=== PATIENT | male | born 1935 | race Hispanic/Latino ===

== ENCOUNTER 2018-09-11 12:53 | Inpatient (IN) | payer OTHER, MEDICARE ==
[2018-09-11 14:47] VITALS: BMI 26.8
[2018-09-12 06:54] LABS: HEMOGLOBIN 12.3 g/dL (12.0-18.0); MEAN CELL VOLUME 95.9 fl (80.0-94.0); MEAN CORPUSCULAR HEMOGLOBIN 32.6 pg (27.0-31.0); RBC 3.77 Mil/uL (4.40-5.90); RED CELL DISTRIBUTION WIDTH 12.8 % (11.5-14.5)
[2018-09-12] MEDS: Metoprolol Succinate 100 mg XL Tab PO SCH (08:34)
[2018-09-12] MEDS: Multivitamin With Minerals Tab PO SCH (08:34)
[2018-09-12] MEDS: Aspirin 325 mg EC Tablets PO SCH (08:34)
[2018-09-12] MEDS: Enoxaparin 40 mg Syringe SC SCH (18:14)
[2018-09-13] MEDS: Enoxaparin 40 mg Syringe SC SCH (08:31)
[2018-09-13] MEDS: Metoprolol Succinate 100 mg XL Tab PO SCH (08:32)
[2018-09-13] MEDS: Multivitamin With Minerals Tab PO SCH (08:32)
[2018-09-13] MEDS: Aspirin 325 mg EC Tablets PO SCH (08:33)
--- NOTE | 2018-09-14 01:40 | CP.PCM.PN ---
Subjective - Date & Time of Evaluation Date of Evaluation: 09/13/18 Time of Evaluation: 13:50 Objective - Vital Signs/Intake and Output Vital Signs (last 24 hours): Temp Pulse Resp BP Pulse Ox 98.2 F 78 20 130/75 93 L 09/13/18 20:06 09/13/18 20:06 09/13/18 20:06 09/13/18 20:06 09/13/18 20:06 - Medications Medications: Current Medications Acetaminophen (Tylenol 325mg Tab) 650 mg PO Q6 PRN PRN Reason: Fever >100.4 F Acetaminophen (Tylenol 325mg Tab) 650 mg PO Q6 PRN PRN Reason: Pain, Mild (1-3) Aspirin (Ecotrin) 325 mg PO DAILY [facility] Last Admin: 09/13/18 08:33 Dose: 325 mg Atorvastatin Calcium (Lipitor) 40 mg PO HS [facility] Last Admin: 09/13/18 21:22 Dose: 40 mg Enoxaparin Sodium (Lovenox) 40 mg SC DAILY [facility]; Protocol Last Admin: 09/13/18 08:31 Dose: 40 mg Losartan Potassium (Cozaar) 50 mg PO DAILY [facility] Last Admin: 09/13/18 08:33 Dose: 50 mg Metoprolol Succinate (Toprol Xl) 100 mg PO DAILY [facility] Last Admin: 09/13/18 08:32 Dose: 100 mg Multivitamins/Minerals (Therapeutic-M Tab) 1 tab PO DAILY [facility] Last Admin: 09/13/18 08:32 Dose: 1 tab Niacin (Niacin) 500 mg PO DAILY [facility] Last Admin: 09/13/18 08:31 Dose: 500 mg Vitamin E (Vitamin E 400 Units Cap) 400 intlu PO DAILY [facility] Last Admin: 09/13/18 08:32 Dose: 400 intlu - Labs Labs: 09/12/18 06:40
--- NOTE | 2018-09-14 01:40 | CP.PCM.HP ---
History of Present Illness - History of Present Illness History of Present Illness: Chief complaint: Physical deconditioning and generalized weakness History of present illness: 82 years old male was admitted to telemetry unit for severe dehydration due to vomiting & found to have non-ST elevation KS and nonsustained V.Tach. Patient was evaluated by sewing machine mechanic recommended cardiac catheterization but family does not want any invasive procedures. Patient was managed medically. Patient is complaining generalized weakness and unable to walk with a walker [baseline patient walks with a walker] due to physical deconditioning. Physical therapist and occupational therapist patient and recommended transitional care unit for PT/OT. Present on Admission - Present on Admission Any Indicators Present on Admission: No Review of Systems - Review of Systems All systems: reviewed and no additional remarkable complaints except Review of Systems: as per HPI Past Patient History - Past Medical History & Family History Past Medical History?: Yes Past Family History: Reviewed and not pertinent - Past Social History Smoking Status: Never Smoked Alcohol: None Drugs: Denies - CARDIAC Hx Hypertension: Yes - NEUROLOGICAL Hx Neurological Disorder: No - RENAL Hx Kidney Stones: Yes - HEMATOLOGICAL/ONCOLOGICAL Hx AIDS: No Hx Cancer: Yes (skin cancer) Hx Human Immunodeficiency Virus (HIV): No - MUSCULOSKELETAL/RHEUMATOLOGICAL Hx Arthritis: Yes Hx Falls: No - PSYCHIATRIC Hx Substance Use: No - SURGICAL HISTORY Other/Comment: right foot surgery - ANESTHESIA Hx Anesthesia: Yes Hx Anesthesia Reactions: No Meds Allergies/Adverse Reactions: Allergies Allergy/AdvReac Type Severity Reaction Status Date / Time No Known Allergies Allergy Verified 09/11/18 13:16 Physical Exam - Constitutional Appears: Well, No Acute Distress, Chronically Ill - Head Exam Head Exam: ATRAUMATIC, NORMAL INSPECTION, NORMOCEPHALIC - Eye Exam Eye Exam: EOMI, Normal appearance, PERRL Pupil Exam: NORMAL ACCOMODATION, PERRL - ENT Exam ENT Exam: Mucous Membranes Moist, Normal Exam - Neck Exam Neck exam: Positive for: Normal Inspection - Respiratory Exam Respiratory Exam: Clear to Auscultation Bilateral, NORMAL BREATHING PATTERN - Cardiovascular Exam Cardiovascular Exam: REGULAR RHYTHM, +S1, +S2 - GI/Abdominal Exam GI & Abdominal Exam: Normal Bowel Sounds, Soft. absent: Tenderness - Extremities Exam Extremities exam: Positive for: normal capillary refill, normal inspection - Back Exam Back exam: NORMAL INSPECTION - Neurological Exam Neurological exam: Abnormal Gait, Alert, CN II-XII Intact, Motor Sensory Deficit, Reflexes Normal - Psychiatric Exam Psychiatric exam: Normal Affect, Normal Mood - Skin Skin Exam: Dry, Intact, Normal Color, Warm Results - Vital Signs Recent Vital Signs: Last Vital Signs Temp 98.2 F 09/13/18 20:06 Pulse 78 09/13/18 20:06 Resp 20 09/13/18 20:06 BP 130/75 09/13/18 20:06 Pulse Ox 93 L 09/13/18 20:06 - Labs Result Diagrams: 09/12/18 06:40 Assessment & Plan (1) Ventricular tachycardia Status: Resolved Priority: High (2) NSTEMI (non-ST elevated myocardial infarction) Status: Resolved Priority: High (3) Generalized weakness Status: Acute Priority: High (4) Physical deconditioning Status: Acute Priority: High (5) DNI (do not intubate) Status: Chronic (6) Hypertension Status: Chronic Priority: Low (7) Skin cancer of scalp Status: Chronic Priority: Low (8) Dehydration Status: Resolved Priority: High (9) Sepsis Status: Resolved Priority: High - Assessment and Plan (Free Text) Plan: Continue with ASA/Metoprolol/Lipitor/Niacin PT/OT DVT Prophylaxis Engineering Programmer Consult
[2018-09-14] MEDS: Multivitamin With Minerals Tab PO SCH (08:21)
[2018-09-14] MEDS: Metoprolol Succinate 100 mg XL Tab PO SCH (08:21)
[2018-09-14] MEDS: Aspirin 325 mg EC Tablets PO SCH (08:21)
[2018-09-14] MEDS: Enoxaparin 40 mg Syringe SC SCH (08:21)
--- NOTE | 2018-09-14 22:37 | CP.PCM.PN ---
Subjective - Date & Time of Evaluation Date of Evaluation: 09/14/18 Time of Evaluation: 11:25 Objective - Vital Signs/Intake and Output Vital Signs (last 24 hours): Temp Pulse Resp BP Pulse Ox 98.2 F 85 20 140/65 94 L 09/14/18 21:11 09/14/18 21:11 09/14/18 21:11 09/14/18 21:11 09/14/18 21:11 - Medications Medications: Current Medications Acetaminophen (Tylenol 325mg Tab) 650 mg PO Q6 PRN PRN Reason: Fever >100.4 F Acetaminophen (Tylenol 325mg Tab) 650 mg PO Q6 PRN PRN Reason: Pain, Mild (1-3) Aspirin (Ecotrin) 325 mg PO DAILY [facility] Last Admin: 09/14/18 08:21 Dose: 325 mg Atorvastatin Calcium (Lipitor) 40 mg PO HS [facility] Last Admin: 09/13/18 21:22 Dose: 40 mg Enoxaparin Sodium (Lovenox) 40 mg SC DAILY [facility]; Protocol Last Admin: 09/14/18 08:21 Dose: 40 mg Losartan Potassium (Cozaar) 50 mg PO DAILY [facility] Last Admin: 09/14/18 08:22 Dose: 50 mg Metoprolol Succinate (Toprol Xl) 100 mg PO DAILY [facility] Last Admin: 09/14/18 08:21 Dose: 100 mg Multivitamins/Minerals (Therapeutic-M Tab) 1 tab PO DAILY [facility] Last Admin: 09/14/18 08:21 Dose: 1 tab Niacin (Niacin) 500 mg PO DAILY [facility] Last Admin: 09/14/18 08:22 Dose: 500 mg Vitamin E (Vitamin E 400 Units Cap) 400 intlu PO DAILY [facility] Last Admin: 09/14/18 08:21 Dose: 400 intlu - Labs Labs: 09/12/18 06:40
[2018-09-15] MEDS: Enoxaparin 40 mg Syringe SC SCH (08:27)
[2018-09-15] MEDS: Aspirin 325 mg EC Tablets PO SCH (08:27)
[2018-09-15] MEDS: Metoprolol Succinate 100 mg XL Tab PO SCH (08:28)
[2018-09-15] MEDS: Multivitamin With Minerals Tab PO SCH (08:28)
--- NOTE | 2018-09-15 17:02 | CP.PCM.CON ---
History of Present Illness - History of Present Illness History of Present Illness: Dr Martinez PMR consultation on Mykel Hamlin, born 1935 who has been admitted to [facility] for [facility] T[facility]. 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 Review of Systems - Constitutional Constitutional: absent: Chills - EENT Eyes: absent: Change in Vision Nose/Mouth/Throat: absent: Nasal Congestion, Nasal Discharge, Dysphagia - Cardiovascular Cardiovascular: absent: Chest Pain - Respiratory Respiratory: absent: Dyspnea, Hemoptysis - Gastrointestinal Gastrointestinal: absent: Abdominal Pain - Musculoskeletal Musculoskeletal: Stiffness (L>R knee) - Neurological Neurological: absent: Abnormal Movements Past Patient History - Past Medical History & Family History Past Medical History?: Yes - Past Social History Smoking Status: Never Smoked Alcohol: None Drugs: Denies Home Situation {Lives}: Alone (ground floor) - CARDIAC Hx Hypertension: Yes - NEUROLOGICAL Hx Neurological Disorder: No - RENAL Hx Kidney Stones: Yes - HEMATOLOGICAL/ONCOLOGICAL Hx AIDS: No Hx Cancer: Yes (skin cancer) Hx Human Immunodeficiency Virus (HIV): No - MUSCULOSKELETAL/RHEUMATOLOGICAL Hx Arthritis: Yes Hx Falls: No - PSYCHIATRIC Hx Substance Use: No - SURGICAL HISTORY Other/Comment: right foot surgery - ANESTHESIA Hx Anesthesia: Yes Hx Anesthesia Reactions: No Meds Allergies/Adverse Reactions: Allergies Allergy/AdvReac Type Severity Reaction Status Date / Time No Known Allergies Allergy Verified 09/11/18 13:16 - Medications Medications: Current Medications Acetaminophen (Tylenol 325mg Tab) 650 mg PO Q6 PRN PRN Reason: Fever >100.4 F Acetaminophen (Tylenol 325mg Tab) 650 mg PO Q6 PRN PRN Reason: Pain, Mild (1-3) Aspirin (Ecotrin) 325 mg PO DAILY [facility] Last Admin: 09/15/18 08:27 Dose: 325 mg Atorvastatin Calcium (Lipitor) 40 mg PO HS [facility] Last Admin: 09/14/18 22:00 Dose: 40 mg Enoxaparin Sodium (Lovenox) 40 mg SC DAILY [facility]; Protocol Losartan Potassium (Cozaar) 50 mg PO DAILY [facility] Last Admin: 09/15/18 08:27 Dose: 50 mg Metoprolol Succinate (Toprol Xl) 100 mg PO DAILY [facility] Last Admin: 01/11/19 08:28 Dose: 100 mg Multivitamins/Minerals (Therapeutic-M Tab) 1 tab PO DAILY [facility] Last Admin: 09/15/18 08:28 Dose: 1 tab Niacin (Niacin) 500 mg PO DAILY [facility] Last Admin: 09/15/18 08:28 Dose: 500 mg Vitamin E (Vitamin E 400 Units Cap) 400 intlu PO DAILY [facility] Last Admin: 09/15/18 08:28 Dose: 400 intlu Physical Exam - Constitutional Appears: Non-toxic - Head Exam Head Exam: absent: ATRAUMATIC (multiple scars secondary to past surgeries) - ENT Exam ENT Exam: Mucous Membranes Moist - Respiratory Exam Respiratory Exam: NORMAL BREATHING PATTERN - GI/Abdominal Exam GI & Abdominal Exam: absent: Distended, Firm - Extremities Exam Extremities exam: Negative for: calf tenderness, full ROM (pain with left knee ROM) - Neurological Exam Neurological exam: Alert, CN II-XII Intact, Oriented x3 - Psychiatric Exam Psychiatric exam: Normal Affect, Normal Mood - Skin Skin Exam: Warm (multiple scars on scalp) Results - Vital Signs Recent Vital Signs: Last Vital Signs Temp 97.6 F 09/15/18 16:03 Pulse 82 09/15/18 16:03 Resp 20 09/15/18 16:03 BP 158/80 H 09/15/18 16:03 Pulse Ox 94 L 09/15/18 16:03 - Labs Result Diagrams: 09/12/18 06:40 Assessment & Plan - Assessment and Plan (Free Text) Assessment: PT/OT to continue to help increase functional independence Pain: controlled but has increased knee pain L>R and I will do a left knee intra-articular injection Vascular: no evidence of DVT GI: No evidence of constipation or diarrhea Patient continues to be an excellent TCU rehabilitation candidate and will have continued focused PT, OT and recreational therapy to help facilitate a safe and appropriate d/c plan
[2018-09-15] MEDS ORDERED: Dexamethasone 4 mg/1 ml IAA ONE (17:04)
[2018-09-15] MEDS ORDERED: Triamcinolone Acetonide 40 mg/mL Inj IAA ONE (17:04)
[2018-09-15] MEDS ORDERED: Lidocaine 1% Inj (20ml) IJ ONE (17:04)
--- NOTE | 2018-09-15 22:47 | CP.PCM.PN ---
Subjective - Date & Time of Evaluation Date of Evaluation: 09/15/18 Time of Evaluation: 12:20 - Subjective Subjective: Seen and examined. Patient states feeling better. Slept well last night. Patient is being trained for stairs. No other complaint Objective - Vital Signs/Intake and Output Vital Signs (last 24 hours): Temp Pulse Resp BP Pulse Ox 97.4 F L 77 20 172/84 H 94 L 09/15/18 20:55 09/15/18 20:55 09/15/18 20:55 09/15/18 20:55 09/15/18 20:55 - Medications Medications: Current Medications Acetaminophen (Tylenol 325mg Tab) 650 mg PO Q6 PRN PRN Reason: Fever >100.4 F Acetaminophen (Tylenol 325mg Tab) 650 mg PO Q6 PRN PRN Reason: Pain, Mild (1-3) Aspirin (Ecotrin) 325 mg PO DAILY [facility] Last Admin: 09/15/18 08:27 Dose: 325 mg Atorvastatin Calcium (Lipitor) 40 mg PO HS [facility] Last Admin: 09/15/18 21:07 Dose: 40 mg Enoxaparin Sodium (Lovenox) 40 mg SC DAILY [facility]; Protocol Losartan Potassium (Cozaar) 50 mg PO DAILY [facility] Last Admin: 09/15/18 08:27 Dose: 50 mg Metoprolol Succinate (Toprol Xl) 100 mg PO DAILY [facility] Last Admin: 09/15/18 08:28 Dose: 100 mg Multivitamins/Minerals (Therapeutic-M Tab) 1 tab PO DAILY [facility] Last Admin: 09/15/18 08:28 Dose: 1 tab Niacin (Niacin) 500 mg PO DAILY [facility] Last Admin: 09/15/18 08:28 Dose: 500 mg Vitamin E (Vitamin E 400 Units Cap) 400 intlu PO DAILY [facility] Last Admin: 09/15/18 08:28 Dose: 400 intlu - Labs Labs: 09/12/18 06:40 Assessment and Plan (1) Physical deconditioning Status: Acute (2) Generalized weakness Status: Acute (3) DNI (do not intubate) Status: Chronic (4) Hypertension Status: Chronic (5) Skin cancer of scalp Status: Chronic (6) Dehydration Status: Resolved (7) Ventricular tachycardia Status: Resolved - Assessment and Plan (Free Text) Plan: Continue current care
[2018-09-16] MEDS: Aspirin 325 mg EC Tablets PO SCH (08:42)
[2018-09-16] MEDS: Enoxaparin 40 mg Syringe SC SCH (08:42)
[2018-09-16] MEDS: Multivitamin With Minerals Tab PO SCH (08:42)
[2018-09-16] MEDS: Metoprolol Succinate 100 mg XL Tab PO SCH (08:42)
--- NOTE | 2018-09-17 01:32 | CP.PCM.PN ---
Subjective - Date & Time of Evaluation Date of Evaluation: 09/16/18 Time of Evaluation: 07:55 - Subjective Subjective: Reviewed charts. Objective - Vital Signs/Intake and Output Vital Signs (last 24 hours): Temp Pulse Resp BP Pulse Ox 99.4 F 73 20 146/71 95 09/16/18 19:39 09/16/18 19:39 09/16/18 19:39 09/16/18 19:39 09/16/18 19:39 - Medications Medications: Current Medications Acetaminophen (Tylenol 325mg Tab) 650 mg PO Q6 PRN PRN Reason: Fever >100.4 F Acetaminophen (Tylenol 325mg Tab) 650 mg PO Q6 PRN PRN Reason: Pain, Mild (1-3) Aspirin (Ecotrin) 325 mg PO DAILY [facility] Last Admin: 09/16/18 08:42 Dose: 325 mg Atorvastatin Calcium (Lipitor) 40 mg PO HS [facility] Last Admin: 09/16/18 21:30 Dose: 40 mg Enoxaparin Sodium (Lovenox) 40 mg SC DAILY [facility]; Protocol Last Admin: 09/16/18 08:42 Dose: 40 mg Losartan Potassium (Cozaar) 50 mg PO DAILY [facility] Last Admin: 09/16/18 08:43 Dose: 50 mg Metoprolol Succinate (Toprol Xl) 100 mg PO DAILY [facility] Last Admin: 09/16/18 08:42 Dose: 100 mg Multivitamins/Minerals (Therapeutic-M Tab) 1 tab PO DAILY [facility] Last Admin: 09/16/18 08:42 Dose: 1 tab Niacin (Niacin) 500 mg PO DAILY [facility] Last Admin: 09/16/18 08:42 Dose: 500 mg Vitamin E (Vitamin E 400 Units Cap) 400 intlu PO DAILY [facility] Last Admin: 09/16/18 08:43 Dose: 400 intlu - Labs Labs: 09/12/18 06:40 Assessment and Plan (1) Ventricular tachycardia Status: Resolved (2) NSTEMI (non-ST elevated myocardial infarction) Status: Resolved (3) Generalized weakness Status: Acute (4) Physical deconditioning Status: Acute (5) DNI (do not intubate) Status: Chronic (6) Hypertension Status: Chronic (7) Skin cancer of scalp Status: Chronic (8) Dehydration Status: Resolved (9) Sepsis Status: Resolved - Assessment and Plan (Free Text) Plan: Continue Current Care.
[2018-09-17] MEDS: Metoprolol Succinate 100 mg XL Tab PO SCH (08:31)
[2018-09-17] MEDS: Enoxaparin 40 mg Syringe SC SCH (08:31)
[2018-09-17] MEDS: Multivitamin With Minerals Tab PO SCH (08:32)
[2018-09-17] MEDS: Aspirin 325 mg EC Tablets PO SCH (08:32)
--- NOTE | 2018-09-17 21:47 | CP.PCM.PN ---
Subjective - Date & Time of Evaluation Date of Evaluation: 09/17/18 Time of Evaluation: 18:35 Objective - Vital Signs/Intake and Output Vital Signs (last 24 hours): Temp Pulse Resp BP Pulse Ox 98.4 F 78 20 122/70 93 L 09/17/18 19:24 09/17/18 19:24 09/17/18 19:24 09/17/18 19:24 09/17/18 19:24 - Medications Medications: Current Medications Acetaminophen (Tylenol 325mg Tab) 650 mg PO Q6 PRN PRN Reason: Fever >100.4 F Acetaminophen (Tylenol 325mg Tab) 650 mg PO Q6 PRN PRN Reason: Pain, Mild (1-3) Aspirin (Ecotrin) 325 mg PO DAILY [facility] Last Admin: 09/17/18 08:32 Dose: 325 mg Atorvastatin Calcium (Lipitor) 40 mg PO HS [facility] Last Admin: 09/17/18 21:01 Dose: 40 mg Enoxaparin Sodium (Lovenox) 40 mg SC DAILY [facility]; Protocol Last Admin: 09/17/18 08:31 Dose: 40 mg Losartan Potassium (Cozaar) 50 mg PO DAILY [facility] Last Admin: 09/17/18 08:32 Dose: 50 mg Metoprolol Succinate (Toprol Xl) 100 mg PO DAILY [facility] Last Admin: 09/17/18 08:31 Dose: 100 mg Multivitamins/Minerals (Therapeutic-M Tab) 1 tab PO DAILY [facility] Last Admin: 09/17/18 08:32 Dose: 1 tab Niacin (Niacin) 500 mg PO DAILY [facility] Last Admin: 09/17/18 08:32 Dose: 500 mg Vitamin E (Vitamin E 400 Units Cap) 400 intlu PO DAILY [facility] Last Admin: 09/17/18 08:32 Dose: 400 intlu - Labs Labs: 09/12/18 06:40 Assessment and Plan (1) Ventricular tachycardia Status: Resolved (2) NSTEMI (non-ST elevated myocardial infarction) Status: Resolved (3) Generalized weakness Status: Acute (4) Physical deconditioning Status: Acute (5) DNI (do not intubate) Status: Chronic (6) Hypertension Status: Chronic (7) Skin cancer of scalp Status: Chronic (8) Dehydration Status: Resolved (9) Sepsis Status: Resolved
[2018-09-18] MEDS: Enoxaparin 40 mg Syringe SC SCH (08:56)
[2018-09-18] MEDS: Aspirin 325 mg EC Tablets PO SCH (08:56)
[2018-09-18] MEDS: Metoprolol Succinate 100 mg XL Tab PO SCH (08:57)
[2018-09-18] MEDS: Multivitamin With Minerals Tab PO SCH (08:57)
--- NOTE | 2018-09-18 22:59 | CP.PCM.PN ---
Subjective - Date & Time of Evaluation Date of Evaluation: 09/18/18 Time of Evaluation: 16:25 Objective - Vital Signs/Intake and Output Vital Signs (last 24 hours): Temp Pulse Resp BP Pulse Ox 98.9 F 82 20 126/76 95 09/18/18 19:27 09/18/18 19:27 09/18/18 19:27 09/18/18 19:27 09/18/18 19:27 - Medications Medications: Current Medications Acetaminophen (Tylenol 325mg Tab) 650 mg PO Q6 PRN PRN Reason: Fever >100.4 F Acetaminophen (Tylenol 325mg Tab) 650 mg PO Q6 PRN PRN Reason: Pain, Mild (1-3) Aspirin (Ecotrin) 325 mg PO DAILY [facility] Last Admin: 09/18/18 08:56 Dose: 325 mg Atorvastatin Calcium (Lipitor) 40 mg PO HS [facility] Last Admin: 09/18/18 21:15 Dose: 40 mg Enoxaparin Sodium (Lovenox) 40 mg SC DAILY [facility]; Protocol Last Admin: 09/18/18 08:56 Dose: 40 mg Losartan Potassium (Cozaar) 50 mg PO DAILY [facility] Last Admin: 09/18/18 08:56 Dose: 50 mg Metoprolol Succinate (Toprol Xl) 100 mg PO DAILY [facility] Last Admin: 09/18/18 08:57 Dose: 100 mg Multivitamins/Minerals (Therapeutic-M Tab) 1 tab PO DAILY [facility] Last Admin: 09/18/18 08:57 Dose: 1 tab Niacin (Niacin) 500 mg PO DAILY [facility] Last Admin: 09/18/18 08:57 Dose: 500 mg Vitamin E (Vitamin E 400 Units Cap) 400 intlu PO DAILY [facility] Last Admin: 09/18/18 11:51 Dose: 400 intlu - Labs Labs: 09/12/18 06:40 Assessment and Plan (1) Ventricular tachycardia Status: Resolved (2) NSTEMI (non-ST elevated myocardial infarction) Status: Resolved (3) Generalized weakness Status: Acute (4) Physical deconditioning Status: Acute (5) DNI (do not intubate) Status: Chronic (6) Hypertension Status: Chronic (7) Skin cancer of scalp Status: Chronic (8) Dehydration Status: Resolved (9) Sepsis Status: Resolved
[2018-09-19] MEDS: Metoprolol Succinate 100 mg XL Tab PO SCH (08:05)
[2018-09-19] MEDS: Enoxaparin 40 mg Syringe SC SCH (08:05)
[2018-09-19] MEDS: Aspirin 325 mg EC Tablets PO SCH (08:06)
[2018-09-19] MEDS: Multivitamin With Minerals Tab PO SCH (08:06)
[2018-09-19] MEDS ORDERED: Povidone Iodine Topical 10% Sol ONE (14:28)
--- NOTE | 2018-09-19 15:02 | PCM.PROC ---
Procedures Attestation:: I certify that I have explained the specified Operation(s) or Procedure(s), risks, benefits and reasonable alternatives to the Patient and/or other person responsible. The opportunity was given to ask questions and all questions answered - Joint Aspiration/Injection Joint #1 Consent Obtained: Verbal Consent Time Out Performed: Yes Side of Body: Left Joint Aspirated: Knee Ultrasound Guidance Used: No Skin Prep: Povidone-Iodine Needle Size Used: 22 G Medication Injected: Triamcinolone Acetate, Methylprednisolone, Lidocaine Patient Tolorated Procedure: Well Complications: None
[2018-09-20] MEDS: Aspirin 325 mg EC Tablets PO SCH (08:55)
[2018-09-20] MEDS: Metoprolol Succinate 100 mg XL Tab PO SCH (08:56)
[2018-09-20] MEDS: Multivitamin With Minerals Tab PO SCH (08:56)
[2018-09-20 09:16] LABS: HEMOGLOBIN 12.6 g/dL (12.0-18.0); MEAN CELL VOLUME 98.7 fl (80.0-94.0); MEAN CORPUSCULAR HEMOGLOBIN 32.4 pg (27.0-31.0); MEAN CORPUSCULAR HGB CONC 32.9 g/dL (33.0-37.0); RBC 3.87 Mil/uL (4.40-5.90); WHITE BLOOD COUNT 14.8 K/uL (4.8-10.8)
[2018-09-20 09:33] LABS: BLOOD UREA NITROGEN 38 mg/dl (9-20); CALCIUM 9.2 mg/dL (8.4-10.2); GFR NON-AFRICAN AMERICAN 53
[2018-09-20] MEDS: Enoxaparin 40 mg Syringe SC SCH (11:25)
[2018-09-20 16:20] VITALS: RESP 20
--- NOTE | 2018-09-20 19:17 | CP.PCM.PN ---
Subjective - Date & Time of Evaluation Date of Evaluation: 09/20/18 Time of Evaluation: 19:16 - Subjective Subjective: Patient seen in the room daughter was present not sure if there is an early benefit yet from the injection participating in therapies continue current care Objective - Vital Signs/Intake and Output Vital Signs (last 24 hours): Temp Pulse Resp BP Pulse Ox 98.2 F 98 H 20 125/70 94 L 09/20/18 16:19 09/20/18 16:19 09/20/18 16:19 09/20/18 16:19 09/20/18 16:19 - Medications Medications: Current Medications Acetaminophen (Tylenol 325mg Tab) 650 mg PO Q6 PRN PRN Reason: Fever >100.4 F Acetaminophen (Tylenol 325mg Tab) 650 mg PO Q6 PRN PRN Reason: Pain, Mild (1-3) Aspirin (Ecotrin) 325 mg PO DAILY [facility] Last Admin: 09/20/18 08:55 Dose: 325 mg Atorvastatin Calcium (Lipitor) 40 mg PO HS [facility] Last Admin: 09/19/18 21:11 Dose: 40 mg Enoxaparin Sodium (Lovenox) 40 mg SC DAILY [facility]; Protocol Last Admin: 09/20/18 11:25 Dose: 40 mg Losartan Potassium (Cozaar) 50 mg PO DAILY [facility] Last Admin: 09/20/18 08:55 Dose: 50 mg Metoprolol Succinate (Toprol Xl) 100 mg PO DAILY [facility] Last Admin: 09/20/18 08:56 Dose: 100 mg Multivitamins/Minerals (Therapeutic-M Tab) 1 tab PO DAILY [facility] Last Admin: 09/20/18 08:56 Dose: 1 tab Niacin (Niacin) 500 mg PO DAILY [facility] Last Admin: 09/20/18 08:55 Dose: 500 mg Vitamin E (Vitamin E 400 Units Cap) 400 intlu PO DAILY [facility] Last Admin: 09/20/18 08:56 Dose: 400 intlu - Labs Labs: 09/20/18 09:10 09/20/18 09:10
--- NOTE | 2018-09-20 22:32 | CP.PCM.PN ---
Subjective - Date & Time of Evaluation Date of Evaluation: 09/19/18 Time of Evaluation: 06:50 Objective - Vital Signs/Intake and Output Vital Signs (last 24 hours): Temp Pulse Resp BP Pulse Ox 97.4 F L 82 20 119/63 96 09/20/18 20:02 09/20/18 20:02 09/20/18 20:02 09/20/18 20:02 09/20/18 20:02 - Medications Medications: Current Medications Acetaminophen (Tylenol 325mg Tab) 650 mg PO Q6 PRN PRN Reason: Fever >100.4 F Acetaminophen (Tylenol 325mg Tab) 650 mg PO Q6 PRN PRN Reason: Pain, Mild (1-3) Aspirin (Ecotrin) 325 mg PO DAILY [facility] Last Admin: 09/20/18 08:55 Dose: 325 mg Atorvastatin Calcium (Lipitor) 40 mg PO HS [facility] Last Admin: 09/20/18 21:09 Dose: 40 mg Enoxaparin Sodium (Lovenox) 40 mg SC DAILY [facility]; Protocol Last Admin: 09/20/18 11:25 Dose: 40 mg Losartan Potassium (Cozaar) 50 mg PO DAILY [facility] Last Admin: 09/20/18 08:55 Dose: 50 mg Metoprolol Succinate (Toprol Xl) 100 mg PO DAILY [facility] Last Admin: 09/20/18 08:56 Dose: 100 mg Multivitamins/Minerals (Therapeutic-M Tab) 1 tab PO DAILY [facility] Last Admin: 09/20/18 08:56 Dose: 1 tab Niacin (Niacin) 500 mg PO DAILY [facility] Last Admin: 09/20/18 08:55 Dose: 500 mg Vitamin E (Vitamin E 400 Units Cap) 400 intlu PO DAILY [facility] Last Admin: 09/20/18 08:56 Dose: 400 intlu - Labs Labs: 09/20/18 09:10 09/20/18 09:10 Assessment and Plan (1) Ventricular tachycardia Status: Resolved (2) NSTEMI (non-ST elevated myocardial infarction) Status: Resolved (3) Generalized weakness Status: Acute (4) Physical deconditioning Status: Acute (5) DNI (do not intubate) Status: Chronic (6) Hypertension Status: Chronic (7) Skin cancer of scalp Status: Chronic (8) Dehydration Status: Resolved (9) Sepsis Status: Resolved
--- NOTE | 2018-09-20 22:33 | CP.PCM.PN ---
Subjective - Date & Time of Evaluation Date of Evaluation: 09/20/18 Time of Evaluation: 13:15 Objective - Vital Signs/Intake and Output Vital Signs (last 24 hours): Temp Pulse Resp BP Pulse Ox 97.4 F L 82 20 119/63 96 09/20/18 20:02 09/20/18 20:02 09/20/18 20:02 09/20/18 20:02 09/20/18 20:02 - Medications Medications: Current Medications Acetaminophen (Tylenol 325mg Tab) 650 mg PO Q6 PRN PRN Reason: Fever >100.4 F Acetaminophen (Tylenol 325mg Tab) 650 mg PO Q6 PRN PRN Reason: Pain, Mild (1-3) Aspirin (Ecotrin) 325 mg PO DAILY [facility] Last Admin: 09/20/18 08:55 Dose: 325 mg Atorvastatin Calcium (Lipitor) 40 mg PO HS [facility] Last Admin: 09/20/18 21:09 Dose: 40 mg Enoxaparin Sodium (Lovenox) 40 mg SC DAILY [facility]; Protocol Last Admin: 09/20/18 11:25 Dose: 40 mg Losartan Potassium (Cozaar) 50 mg PO DAILY [facility] Last Admin: 09/20/18 08:55 Dose: 50 mg Metoprolol Succinate (Toprol Xl) 100 mg PO DAILY [facility] Last Admin: 09/20/18 08:56 Dose: 100 mg Multivitamins/Minerals (Therapeutic-M Tab) 1 tab PO DAILY [facility] Last Admin: 09/20/18 08:56 Dose: 1 tab Niacin (Niacin) 500 mg PO DAILY [facility] Last Admin: 09/20/18 08:55 Dose: 500 mg Vitamin E (Vitamin E 400 Units Cap) 400 intlu PO DAILY [facility] Last Admin: 09/20/18 08:56 Dose: 400 intlu - Labs Labs: 09/20/18 09:10 09/20/18 09:10 Assessment and Plan (1) Ventricular tachycardia Status: Resolved (2) NSTEMI (non-ST elevated myocardial infarction) Status: Resolved (3) Generalized weakness Status: Acute (4) Physical deconditioning Status: Acute (5) DNI (do not intubate) Status: Chronic (6) Hypertension Status: Chronic (7) Skin cancer of scalp Status: Chronic (8) Dehydration Status: Resolved (9) Sepsis Status: Resolved
[2018-09-21] MEDS: Aspirin 325 mg EC Tablets PO SCH (09:09)
[2018-09-21] MEDS: Multivitamin With Minerals Tab PO SCH (09:10)
[2018-09-21] MEDS: Enoxaparin 40 mg Syringe SC SCH (09:10)
[2018-09-21] MEDS: Metoprolol Succinate 100 mg XL Tab PO SCH (09:10)
[2018-09-22] MEDS: Aspirin 325 mg EC Tablets PO SCH (09:22)
[2018-09-22] MEDS: Enoxaparin 40 mg Syringe SC SCH (09:22)
[2018-09-22] MEDS: Multivitamin With Minerals Tab PO SCH (09:22)
[2018-09-22] MEDS: Metoprolol Succinate 100 mg XL Tab PO SCH (09:23)
--- NOTE | 2018-09-22 10:23 | CP.PCM.PN ---
Subjective - Date & Time of Evaluation Date of Evaluation: 09/21/18 Objective - Vital Signs/Intake and Output Vital Signs (last 24 hours): Temp Pulse Resp BP Pulse Ox 98.8 F 72 20 137/82 95 09/21/18 22:00 09/22/18 09:23 09/21/18 22:00 09/22/18 09:23 09/21/18 22:00 - Medications Medications: Current Medications Acetaminophen (Tylenol 325mg Tab) 650 mg PO Q6 PRN PRN Reason: Fever >100.4 F Acetaminophen (Tylenol 325mg Tab) 650 mg PO Q6 PRN PRN Reason: Pain, Mild (1-3) Aspirin (Ecotrin) 325 mg PO DAILY [facility] Last Admin: 09/22/18 09:22 Dose: 325 mg Atorvastatin Calcium (Lipitor) 40 mg PO HS [facility] Last Admin: 09/21/18 21:34 Dose: 40 mg Enoxaparin Sodium (Lovenox) 40 mg SC DAILY [facility]; Protocol Last Admin: 09/22/18 09:22 Dose: 40 mg Losartan Potassium (Cozaar) 50 mg PO DAILY [facility] Last Admin: 09/22/18 09:22 Dose: 50 mg Metoprolol Succinate (Toprol Xl) 100 mg PO DAILY [facility] Last Admin: 09/22/18 09:23 Dose: 100 mg Multivitamins/Minerals (Therapeutic-M Tab) 1 tab PO DAILY [facility] Last Admin: 09/22/18 09:22 Dose: 1 tab Niacin (Niacin) 500 mg PO DAILY [facility] Last Admin: 09/22/18 09:23 Dose: 500 mg Vitamin E (Vitamin E 400 Units Cap) 400 intlu PO DAILY [facility] Last Admin: 09/22/18 09:23 Dose: 400 intlu - Labs Labs: 09/20/18 09:10 09/20/18 09:10 Assessment and Plan (1) Ventricular tachycardia Status: Resolved (2) NSTEMI (non-ST elevated myocardial infarction) Status: Resolved (3) Generalized weakness Status: Acute (4) Physical deconditioning Status: Acute (5) DNI (do not intubate) Status: Chronic (6) Hypertension Status: Chronic (7) Skin cancer of scalp Status: Chronic (8) Dehydration Status: Resolved (9) Sepsis Status: Resolved
--- NOTE | 2018-09-22 15:25 | CP.PCM.PN ---
Subjective - Date & Time of Evaluation Date of Evaluation: 09/22/18 Time of Evaluation: 15:25 - Subjective Subjective: Patient seen in the room, notes an improvement in left knee pain denies fever working hard in therapies continue current care. Objective - Vital Signs/Intake and Output Vital Signs (last 24 hours): Temp Pulse Resp BP Pulse Ox 97.9 F 72 20 137/82 94 L 09/22/18 11:29 09/22/18 11:29 09/22/18 11:29 09/22/18 11:29 09/22/18 11:29 - Medications Medications: Current Medications Acetaminophen (Tylenol 325mg Tab) 650 mg PO Q6 PRN PRN Reason: Fever >100.4 F Acetaminophen (Tylenol 325mg Tab) 650 mg PO Q6 PRN PRN Reason: Pain, Mild (1-3) Aspirin (Ecotrin) 325 mg PO DAILY [facility] Last Admin: 09/22/18 09:22 Dose: 325 mg Atorvastatin Calcium (Lipitor) 40 mg PO HS [facility] Last Admin: 09/21/18 21:34 Dose: 40 mg Enoxaparin Sodium (Lovenox) 40 mg SC DAILY [facility]; Protocol Last Admin: 09/22/18 09:22 Dose: 40 mg Losartan Potassium (Cozaar) 50 mg PO DAILY [facility] Last Admin: 09/22/18 09:22 Dose: 50 mg Metoprolol Succinate (Toprol Xl) 100 mg PO DAILY [facility] Last Admin: 09/22/18 09:23 Dose: 100 mg Multivitamins/Minerals (Therapeutic-M Tab) 1 tab PO DAILY [facility] Last Admin: 09/22/18 09:22 Dose: 1 tab Niacin (Niacin) 500 mg PO DAILY [facility] Last Admin: 09/22/18 09:23 Dose: 500 mg Vitamin E (Vitamin E 400 Units Cap) 400 intlu PO DAILY [facility] Last Admin: 09/22/18 09:23 Dose: 400 intlu - Labs Labs: 09/20/18 09:10 09/20/18 09:10
--- NOTE | 2018-09-22 23:05 | CP.PCM.PN ---
Subjective - Date & Time of Evaluation Date of Evaluation: 09/22/18 Objective - Vital Signs/Intake and Output Vital Signs (last 24 hours): Temp Pulse Resp BP Pulse Ox 98.3 F 83 20 131/80 95 09/22/18 19:36 09/22/18 19:36 09/22/18 19:36 09/22/18 19:36 09/22/18 19:36 - Medications Medications: Current Medications Acetaminophen (Tylenol 325mg Tab) 650 mg PO Q6 PRN PRN Reason: Fever >100.4 F Acetaminophen (Tylenol 325mg Tab) 650 mg PO Q6 PRN PRN Reason: Pain, Mild (1-3) Aspirin (Ecotrin) 325 mg PO DAILY [facility] Last Admin: 09/22/18 09:22 Dose: 325 mg Atorvastatin Calcium (Lipitor) 40 mg PO HS [facility] Last Admin: 09/22/18 21:57 Dose: 40 mg Enoxaparin Sodium (Lovenox) 40 mg SC DAILY [facility]; Protocol Last Admin: 09/22/18 09:22 Dose: 40 mg Losartan Potassium (Cozaar) 50 mg PO DAILY [facility] Last Admin: 09/22/18 09:22 Dose: 50 mg Metoprolol Succinate (Toprol Xl) 100 mg PO DAILY [facility] Last Admin: 09/22/18 09:23 Dose: 100 mg Multivitamins/Minerals (Therapeutic-M Tab) 1 tab PO DAILY [facility] Last Admin: 09/22/18 09:22 Dose: 1 tab Niacin (Niacin) 500 mg PO DAILY [facility] Last Admin: 09/22/18 09:23 Dose: 500 mg Vitamin E (Vitamin E 400 Units Cap) 400 intlu PO DAILY [facility] Last Admin: 09/22/18 09:23 Dose: 400 intlu - Labs Labs: 09/20/18 09:10 09/20/18 09:10 Assessment and Plan (1) Ventricular tachycardia Status: Resolved (2) NSTEMI (non-ST elevated myocardial infarction) Status: Resolved (3) Generalized weakness Status: Acute (4) Physical deconditioning Status: Acute (5) DNI (do not intubate) Status: Chronic (6) Hypertension Status: Chronic (7) Skin cancer of scalp Status: Chronic (8) Dehydration Status: Resolved (9) Sepsis Status: Resolved
[2018-09-23] MEDS: Enoxaparin 40 mg Syringe SC SCH (08:07)
[2018-09-23] MEDS: Aspirin 325 mg EC Tablets PO SCH (08:07)
[2018-09-23] MEDS: Metoprolol Succinate 100 mg XL Tab PO SCH (08:08)
[2018-09-23] MEDS: Multivitamin With Minerals Tab PO SCH (08:08)
--- NOTE | 2018-09-24 00:49 | CP.PCM.PN ---
Subjective - Date & Time of Evaluation Date of Evaluation: 09/23/18 Objective - Vital Signs/Intake and Output Vital Signs (last 24 hours): Temp Pulse Resp BP Pulse Ox 98.5 F 85 20 149/72 95 09/23/18 21:52 09/23/18 21:52 09/23/18 21:52 09/23/18 21:52 09/23/18 21:52 - Medications Medications: Current Medications Acetaminophen (Tylenol 325mg Tab) 650 mg PO Q6 PRN PRN Reason: Fever >100.4 F Acetaminophen (Tylenol 325mg Tab) 650 mg PO Q6 PRN PRN Reason: Pain, Mild (1-3) Aspirin (Ecotrin) 325 mg PO DAILY [facility] Last Admin: 09/23/18 08:07 Dose: 325 mg Atorvastatin Calcium (Lipitor) 40 mg PO HS [facility] Last Admin: 09/23/18 21:49 Dose: 40 mg Losartan Potassium (Cozaar) 50 mg PO DAILY [facility] Last Admin: 09/23/18 08:07 Dose: 50 mg Metoprolol Succinate (Toprol Xl) 100 mg PO DAILY [facility] Last Admin: 09/23/18 08:08 Dose: 100 mg Multivitamins/Minerals (Therapeutic-M Tab) 1 tab PO DAILY [facility] Last Admin: 09/23/18 08:08 Dose: 1 tab Niacin (Niacin) 500 mg PO DAILY [facility] Last Admin: 09/23/18 08:08 Dose: 500 mg Vitamin E (Vitamin E 400 Units Cap) 400 intlu PO DAILY [facility] Last Admin: 09/23/18 08:08 Dose: 400 intlu - Labs Labs: 09/20/18 09:10 09/20/18 09:10 Assessment and Plan (1) Ventricular tachycardia Status: Resolved (2) NSTEMI (non-ST elevated myocardial infarction) Status: Resolved (3) Generalized weakness Status: Acute (4) Physical deconditioning Status: Acute (5) DNI (do not intubate) Status: Chronic (6) Hypertension Status: Chronic (7) Skin cancer of scalp Status: Chronic (8) Dehydration Status: Resolved (9) Sepsis Status: Resolved
[2018-09-24] MEDS: Metoprolol Succinate 100 mg XL Tab PO SCH (10:45)
[2018-09-24] MEDS: Aspirin 325 mg EC Tablets PO SCH (10:46)
[2018-09-24] MEDS: Multivitamin With Minerals Tab PO SCH (12:47)
[2018-09-24 17:13] LABS: HEMOGLOBIN 12.6 g/dL (12.0-18.0); MEAN CELL VOLUME 96.3 fl (80.0-94.0); MEAN CORPUSCULAR HEMOGLOBIN 32.3 pg (27.0-31.0); MEAN CORPUSCULAR HGB CONC 33.5 g/dL (33.0-37.0); RBC 3.9 Mil/uL (4.40-5.90); RED CELL DISTRIBUTION WIDTH 13.4 % (11.5-14.5); WHITE BLOOD COUNT 10.2 K/uL (4.8-10.8)
[2018-09-24 17:21] LABS: BLOOD UREA NITROGEN 33 mg/dl (9-20); GFR NON-AFRICAN AMERICAN 53
[2018-09-24] MEDS: Enoxaparin 40 mg Syringe SC SCH (17:53)
[2018-09-25] MEDS: Aspirin 325 mg EC Tablets PO SCH (09:15)
[2018-09-25] MEDS: Multivitamin With Minerals Tab PO SCH (09:16)
[2018-09-25] MEDS: Enoxaparin 40 mg Syringe SC SCH (09:16)
[2018-09-25] MEDS: Metoprolol Succinate 100 mg XL Tab PO SCH (09:17)
--- NOTE | 2018-09-25 18:11 | CP.PCM.PN ---
Subjective - Date & Time of Evaluation Date of Evaluation: 09/25/18 Time of Evaluation: 18:09 - Subjective Subjective: Patient seen in the room when asked how the left knee is doing he crossed his fingers happy with the results I told him that I can inject him once every 3-4 months as needed continue current care Objective - Vital Signs/Intake and Output Vital Signs (last 24 hours): Temp Pulse Resp BP Pulse Ox 97.4 F L 92 H 20 131/86 94 L 09/25/18 16:32 09/25/18 16:32 09/25/18 16:32 09/25/18 16:32 09/25/18 16:32 - Medications Medications: Current Medications Acetaminophen (Tylenol 325mg Tab) 650 mg PO Q6 PRN PRN Reason: Fever >100.4 F Acetaminophen (Tylenol 325mg Tab) 650 mg PO Q6 PRN PRN Reason: Pain, Mild (1-3) Aspirin (Ecotrin) 325 mg PO DAILY [facility] Last Admin: 09/25/18 09:15 Dose: 325 mg Atorvastatin Calcium (Lipitor) 40 mg PO HS [facility] Last Admin: 09/24/18 22:05 Dose: 40 mg Enoxaparin Sodium (Lovenox) 40 mg SC DAILY [facility]; Protocol Last Admin: 09/25/18 09:16 Dose: 40 mg Losartan Potassium (Cozaar) 50 mg PO DAILY [facility] Last Admin: 09/25/18 09:15 Dose: 50 mg Metoprolol Succinate (Toprol Xl) 100 mg PO DAILY [facility] Last Admin: 09/25/18 09:17 Dose: 100 mg Multivitamins/Minerals (Therapeutic-M Tab) 1 tab PO DAILY [facility] Last Admin: 09/25/18 09:16 Dose: 1 tab Niacin (Niacin) 500 mg PO DAILY [facility] Last Admin: 09/25/18 09:16 Dose: 500 mg Vitamin E (Vitamin E 400 Units Cap) 400 intlu PO DAILY [facility] Last Admin: 09/25/18 09:17 Dose: 400 intlu - Labs Labs: 09/24/18 17:09 09/24/18 17:09
[2018-09-26] MEDS: Multivitamin With Minerals Tab PO SCH (08:34)
[2018-09-26] MEDS: Enoxaparin 40 mg Syringe SC SCH (08:35)
[2018-09-26] MEDS: Aspirin 325 mg EC Tablets PO SCH (08:35)
[2018-09-26] MEDS: Metoprolol Succinate 100 mg XL Tab PO SCH (08:35)
--- NOTE | 2018-09-26 17:46 | CP.PCM.PN ---
Subjective - Date & Time of Evaluation Date of Evaluation: 09/26/18 Time of Evaluation: 17:46 - Subjective Subjective: Patient seen in the room denies sob/cp denies bowel issue ambulating 35' with RW pain remains controlled continue current care Objective - Vital Signs/Intake and Output Vital Signs (last 24 hours): Temp Pulse Resp BP Pulse Ox 97.5 F L 91 H 20 119/78 95 09/26/18 16:15 09/26/18 16:15 09/26/18 16:15 09/26/18 16:15 09/26/18 16:15 - Medications Medications: Current Medications Acetaminophen (Tylenol 325mg Tab) 650 mg PO Q6 PRN PRN Reason: Fever >100.4 F Acetaminophen (Tylenol 325mg Tab) 650 mg PO Q6 PRN PRN Reason: Pain, Mild (1-3) Aspirin (Ecotrin) 325 mg PO DAILY [facility] Last Admin: 09/26/18 08:35 Dose: 325 mg Atorvastatin Calcium (Lipitor) 40 mg PO HS [facility] Last Admin: 09/25/18 21:21 Dose: 40 mg Enoxaparin Sodium (Lovenox) 40 mg SC DAILY [facility]; Protocol Last Admin: 09/26/18 08:35 Dose: 40 mg Losartan Potassium (Cozaar) 50 mg PO DAILY [facility] Last Admin: 09/26/18 08:34 Dose: 50 mg Metoprolol Succinate (Toprol Xl) 100 mg PO DAILY [facility] Last Admin: 09/26/18 08:35 Dose: 100 mg Multivitamins/Minerals (Therapeutic-M Tab) 1 tab PO DAILY [facility] Last Admin: 09/26/18 08:34 Dose: 1 tab Niacin (Niacin) 500 mg PO DAILY [facility] Last Admin: 09/26/18 08:34 Dose: 500 mg Vitamin E (Vitamin E 400 Units Cap) 400 intlu PO DAILY [facility] Last Admin: 09/26/18 08:34 Dose: 400 intlu - Labs Labs: 09/24/18 17:09 09/24/18 17:09
--- NOTE | 2018-09-26 18:19 | CP.PCM.PN ---
Subjective - Date & Time of Evaluation Date of Evaluation: 09/24/18 Objective - Vital Signs/Intake and Output Vital Signs (last 24 hours): Temp Pulse Resp BP Pulse Ox 97.5 F L 91 H 20 119/78 95 09/26/18 16:15 09/26/18 16:15 09/26/18 16:15 09/26/18 16:15 09/26/18 16:15 - Medications Medications: Current Medications Acetaminophen (Tylenol 325mg Tab) 650 mg PO Q6 PRN PRN Reason: Fever >100.4 F Acetaminophen (Tylenol 325mg Tab) 650 mg PO Q6 PRN PRN Reason: Pain, Mild (1-3) Aspirin (Ecotrin) 325 mg PO DAILY [facility] Last Admin: 09/26/18 08:35 Dose: 325 mg Atorvastatin Calcium (Lipitor) 40 mg PO HS [facility] Last Admin: 09/25/18 21:21 Dose: 40 mg Enoxaparin Sodium (Lovenox) 40 mg SC DAILY [facility]; Protocol Last Admin: 09/26/18 08:35 Dose: 40 mg Losartan Potassium (Cozaar) 50 mg PO DAILY [facility] Last Admin: 09/26/18 08:34 Dose: 50 mg Metoprolol Succinate (Toprol Xl) 100 mg PO DAILY [facility] Last Admin: 09/26/18 08:35 Dose: 100 mg Multivitamins/Minerals (Therapeutic-M Tab) 1 tab PO DAILY [facility] Last Admin: 09/26/18 08:34 Dose: 1 tab Niacin (Niacin) 500 mg PO DAILY [facility] Last Admin: 09/26/18 08:34 Dose: 500 mg Vitamin E (Vitamin E 400 Units Cap) 400 intlu PO DAILY [facility] Last Admin: 09/26/18 08:34 Dose: 400 intlu - Labs Labs: 09/24/18 17:09 09/24/18 17:09 Assessment and Plan (1) Ventricular tachycardia Status: Resolved (2) NSTEMI (non-ST elevated myocardial infarction) Status: Resolved (3) Generalized weakness Status: Acute (4) Physical deconditioning Status: Acute (5) DNI (do not intubate) Status: Chronic (6) Hypertension Status: Chronic (7) Skin cancer of scalp Status: Chronic (8) Dehydration Status: Resolved (9) Sepsis Status: Resolved
--- NOTE | 2018-09-26 18:19 | CP.PCM.PN ---
Subjective - Date & Time of Evaluation Date of Evaluation: 09/25/18 Objective - Vital Signs/Intake and Output Vital Signs (last 24 hours): Temp Pulse Resp BP Pulse Ox 97.5 F L 91 H 20 119/78 95 09/26/18 16:15 09/26/18 16:15 09/26/18 16:15 09/26/18 16:15 09/26/18 16:15 - Medications Medications: Current Medications Acetaminophen (Tylenol 325mg Tab) 650 mg PO Q6 PRN PRN Reason: Fever >100.4 F Acetaminophen (Tylenol 325mg Tab) 650 mg PO Q6 PRN PRN Reason: Pain, Mild (1-3) Aspirin (Ecotrin) 325 mg PO DAILY [facility] Last Admin: 09/26/18 08:35 Dose: 325 mg Atorvastatin Calcium (Lipitor) 40 mg PO HS [facility] Last Admin: 09/25/18 21:21 Dose: 40 mg Enoxaparin Sodium (Lovenox) 40 mg SC DAILY [facility]; Protocol Last Admin: 09/26/18 08:35 Dose: 40 mg Losartan Potassium (Cozaar) 50 mg PO DAILY [facility] Last Admin: 09/26/18 08:34 Dose: 50 mg Metoprolol Succinate (Toprol Xl) 100 mg PO DAILY [facility] Last Admin: 09/26/18 08:35 Dose: 100 mg Multivitamins/Minerals (Therapeutic-M Tab) 1 tab PO DAILY [facility] Last Admin: 09/26/18 08:34 Dose: 1 tab Niacin (Niacin) 500 mg PO DAILY [facility] Last Admin: 09/26/18 08:34 Dose: 500 mg Vitamin E (Vitamin E 400 Units Cap) 400 intlu PO DAILY [facility] Last Admin: 09/26/18 08:34 Dose: 400 intlu - Labs Labs: 09/24/18 17:09 09/24/18 17:09 Assessment and Plan (1) Ventricular tachycardia Status: Resolved (2) NSTEMI (non-ST elevated myocardial infarction) Status: Resolved (3) Generalized weakness Status: Acute (4) Physical deconditioning Status: Acute (5) DNI (do not intubate) Status: Chronic (6) Hypertension Status: Chronic (7) Skin cancer of scalp Status: Chronic (8) Dehydration Status: Resolved (9) Sepsis Status: Resolved
--- NOTE | 2018-09-26 18:20 | CP.PCM.PN ---
Subjective - Date & Time of Evaluation Date of Evaluation: 09/26/18 Time of Evaluation: 17:00 Objective - Vital Signs/Intake and Output Vital Signs (last 24 hours): Temp Pulse Resp BP Pulse Ox 97.5 F L 91 H 20 119/78 95 09/26/18 16:15 09/26/18 16:15 09/26/18 16:15 09/26/18 16:15 09/26/18 16:15 - Medications Medications: Current Medications Acetaminophen (Tylenol 325mg Tab) 650 mg PO Q6 PRN PRN Reason: Fever >100.4 F Acetaminophen (Tylenol 325mg Tab) 650 mg PO Q6 PRN PRN Reason: Pain, Mild (1-3) Aspirin (Ecotrin) 325 mg PO DAILY [facility] Last Admin: 09/26/18 08:35 Dose: 325 mg Atorvastatin Calcium (Lipitor) 40 mg PO HS [facility] Last Admin: 09/25/18 21:21 Dose: 40 mg Enoxaparin Sodium (Lovenox) 40 mg SC DAILY [facility]; Protocol Last Admin: 09/26/18 08:35 Dose: 40 mg Losartan Potassium (Cozaar) 50 mg PO DAILY [facility] Last Admin: 09/26/18 08:34 Dose: 50 mg Metoprolol Succinate (Toprol Xl) 100 mg PO DAILY [facility] Last Admin: 09/26/18 08:35 Dose: 100 mg Multivitamins/Minerals (Therapeutic-M Tab) 1 tab PO DAILY [facility] Last Admin: 09/26/18 08:34 Dose: 1 tab Niacin (Niacin) 500 mg PO DAILY [facility] Last Admin: 09/26/18 08:34 Dose: 500 mg Vitamin E (Vitamin E 400 Units Cap) 400 intlu PO DAILY [facility] Last Admin: 09/26/18 08:34 Dose: 400 intlu - Labs Labs: 09/24/18 17:09 09/24/18 17:09 Assessment and Plan (1) Ventricular tachycardia Status: Resolved (2) NSTEMI (non-ST elevated myocardial infarction) Status: Resolved (3) Generalized weakness Status: Acute (4) Physical deconditioning Status: Acute (5) DNI (do not intubate) Status: Chronic (6) Hypertension Status: Chronic (7) Skin cancer of scalp Status: Chronic (8) Dehydration Status: Resolved (9) Sepsis Status: Resolved
[2018-09-26 20:05] VITALS: PULSE 83
[2018-09-27 08:05] VITALS: BP 114/71; TEMP 98.3; O2SAT 96
[2018-09-27] MEDS: Enoxaparin 40 mg Syringe SC SCH (08:12)
[2018-09-27] MEDS: Metoprolol Succinate 100 mg XL Tab PO SCH (08:13)
[2018-09-27] MEDS: Multivitamin With Minerals Tab PO SCH (08:13)
[2018-09-27] MEDS: Aspirin 325 mg EC Tablets PO SCH (08:13)
--- NOTE | 2018-09-27 21:55 | CP.PCM.DIS ---
Provider - Provider Date of Admission: 09/11/18 14:48 Attending physician: Hermila Moise MD Consults: 09/11/18 15:07 Case Management Referral Routine Comment: Physician Instructions: Reason For Exam: Reason for Referral: Discharge Planning 09/11/18 15:58 Nursing Referral for Wound Care Routine Comment: Physician Instructions: Reason For Exam: seamus scale 09/15/18 11:44 Physiatry Consult Routine Comment: Consulting Provider: Jabier Martinez Consulting Physician: Jabier Martinez Reason for Consult: left knee pain; Hx arthritis; on PT/OT Time Spent in preparation of Discharge (in minutes): 25 Diagnosis - Discharge Diagnosis (1) Ventricular tachycardia Status: Resolved Priority: High (2) NSTEMI (non-ST elevated myocardial infarction) Status: Resolved Priority: High (3) Generalized weakness Status: Acute Priority: High (4) Physical deconditioning Status: Acute Priority: High (5) DNI (do not intubate) Status: Chronic (6) Hypertension Status: Chronic Priority: Low (7) Skin cancer of scalp Status: Chronic Priority: Low (8) Dehydration Status: Resolved Priority: High (9) Sepsis Status: Resolved Priority: High Hospital Course - Lab Results Lab Results: Most Recent Lab Values WBC 10.2 K/uL (4.8-10.8) 09/24/18 17:09 RBC 3.90 Mil/uL (4.40-5.90) L 09/24/18 17:09 Hgb 12.6 g/dL (12.0-18.0) 09/24/18 17:09 Hct 37.6 % (35.0-51.0) 09/24/18 17:09 MCV 96.3 fl (80.0-94.0) H D 09/24/18 17:09 MCH 32.3 pg (27.0-31.0) H 09/24/18 17:09 MCHC 33.5 g/dL (33.0-37.0) 09/24/18 17:09 RDW 13.4 % (11.5-14.5) 09/24/18 17:09 Plt Count 216 K/uL (130-400) 09/24/18 17:09 Sodium 135 mmol/l (132-148) 09/24/18 17:09 Potassium 4.2 MMOL/L (3.6-5.0) 09/24/18 17:09 Chloride 99 mmol/L (98-107) 09/24/18 17:09 Carbon Dioxide 22 mmol/L (22-30) 09/24/18 17:09 Anion Gap 18 (10-20) 09/24/18 17:09 BUN 33 mg/dl (9-20) H 09/24/18 17:09 Creatinine 1.3 mg/dl (0.8-1.5) 09/24/18 17:09 Est GFR ( Amer) > 60 09/24/18 17:09 Est GFR (Non-Af Amer) 53 09/24/18 17:09 Random Glucose 174 mg/dL (75-110) H 09/24/18 17:09 Calcium 9.0 mg/dL (8.4-10.2) 09/24/18 17:09 Discharge Exam - Head Exam Head Exam: ATRAUMATIC, NORMAL INSPECTION, NORMOCEPHALIC Discharge Plan - Follow Up Plan Condition: GOOD Disposition: [facility]ED [facility] Instructions: Sepsis, Adult (DC), Generalized Weakness Additional Instructions: FOLLOW UP WITH PRIMARY MD IN ONE WEEK. Referrals: Hermila Moise MD [Staff Provider] - Jabier Martinez MD [Staff Provider] -
== END 2018-09-27 11:31 | disposition home health service (06) | DRG 945 ==
LOC: H.TCU 14:48
PROVIDERS: ADMIT Internal Medicine; ATTEND Internal Medicine
PROC: F07Z9FZ Gait Training/Functional Ambulation Treatment using Assistive, Adaptive, Supportive or Protective Equipment (ICD-10-PCS; principal; 2018-09-11)
PROC: F07L6GZ Therapeutic Exercise Treatment of Musculoskeletal System - Lower Back / Lower Extremity using Aerobic Endurance and Conditioning Equipment (ICD-10-PCS; 2018-09-11)
PROC: F07 Physical Rehabilitation and Diagnostic Audiology, Rehabilitation, Motor Treatment (ICD-10-PCS; 2018-09-11)
PROC: F08Z1FZ Dressing Techniques Treatment using Assistive, Adaptive, Supportive or Protective Equipment (ICD-10-PCS; 2018-09-11)
PROC: F08Z0FZ Bathing/Showering Techniques Treatment using Assistive, Adaptive, Supportive or Protective Equipment (ICD-10-PCS; 2018-09-11)
DX: R53.1 Weakness (principal); I21.4 Non-ST elevation (NSTEMI) myocardial infarction; I47.2 Ventricular tachycardia; C44.40 Unspecified malignant neoplasm of skin of scalp and neck; I10 Essential (primary) hypertension; M17.0 Bilateral primary osteoarthritis of knee